=== PATIENT | male | born 1960 | race Caucasian/White ===

== ENCOUNTER 2016-06-19 12:16 | Day surgery (SDC) | payer OTHER ==
[~2016-06-19] VITALS: Ht 177.8 cm; Wt 99.5 kg
[2016-06-19] VITALS (9 sets, daily range): BP systolic 122–140; BP diastolic 66–86; PULSE 55–70; RESP 9–18; O2SAT 95–99
[~2016-06-19 12:16] MED LIST: CeFAZolin Inj 2 GM in IV Premix 1 EACH IV ONE; Dexamethasone 4 mg/mL Inj IVPUSH PRN; EPHEDrine Sulfate 50 mg/mL Inj IVPUSH PRN; HYDR-4003 PO; HYDROmorphone 1 mg/mL Inj IVPUSH PRN; Lactated Ringer's 1,000 ML IV SCH; Lactated Ringer's 500 ML IV PRN; MetoCLOpramide 5 mg/mL 2 mL Inj IVPUSH PRN; Ondansetron 2 mg/mL 2 mL Inj IVPUSH PRN; Phenylephrine 10,000 mCg/mL Inj IVPUSH PRN; fentaNYL-PF 50 mCg/mL 2 mL Inj IVPUSH PRN
[2016-06-19] MEDS: Lactated Ringer's 1,000 ML IV SCH ×2 (12:46→13:52)
[2016-06-19] MEDS ORDERED: IBUP200C PO (12:48)
[2016-06-19] MEDS ORDERED: NAPR220C11 PO (12:48)
[2016-06-19] MEDS ORDERED: CeFAZolin Inj 2 gm / 50mL D5W IV ONE (13:05)
[2016-06-19] MEDS ORDERED: HYDROcodone-APAP 5-325 mg Tablet PO PRN (13:10)
--- NOTE | 2016-06-19 13:21 | PCM.ORTHOP ---
Orthopedic Operative Report Date of Service: Jun 19, 2016 Pre Operative Diagnosis Right fourth finger bony mallet nonunion, left knee arthritis Post Operative Diagnosis Same Procedure Right fourth finger bony mallet distal phalanx open reduction internal fixation , left knee steroid injection under anesthesia Surgeon Surgeon: Oseas Perkins MD Assistants: None Indication for Procedure Right fourth finger bony mallet nonunion, left knee arthritis Findings Per dictation Details of Procedure A clear explanation was given to the patient regarding the condition present, and the available conservative and surgical options. It was emphasized that the risks and benefits of surgery include but are not limited to infection, wound healing problems, damage to adjacent structures such as nerves, blood vessels and tendons, detention disability and pain, arthritis, hypersensitivity, deep vein thrombosis, pulmonary embolism, broken hardware, failure of surgery, need for further procedures at time of surgery or later, cast related problems, loss of limb or life. The patient was given an explanation and the patient voiced understanding of what to expect after the procedure or surgery, the limitations in activities of daily living, the likely duration for post operative recovery and the instructions that are to be followed. At the end the patient was invited to seek clarification or ask further questions but there were none. The patient voiced understanding of the entire consultation. Description of Procedure: Patient taken to operating room and transferred to operating table in supine position. Time out was performed with both anesthesia and orthopaedics faculty present to confirm details of case to be performed. After time out performed, patient placed under general anesthesia and endotracheal tube secured into place. Once endotracheal tube secured, proximal arm tourniquet was placed over softroll and secured with tape. Patient position was again checked to ensure all bony prominences adequately padded. The right arm was prepped and draped in the usual sterile fashion to the level of the tourniquet. A left steroid injection was performed in the left knee under sterile preparation. With 2 mL of lidocaine, 2 mL of bupivacaine, and 1 mL of 4 mg of Kenalog. The right upper extremity was then exsanguinated with an esmark and the tourniquet was then inflated to 250 mmHG. Incision was made approximately 1 cm H shaped long over the distal interphalangeal joint. Care was taken to preserve the extensor mechanism. The capsule was incised and the bony mallet phalanx were exposed. Fibrous tissue was debrided with a curet and rongeur. The fracture had minimal callus formation with an oblique fracture line involving the joint. The proximal bony mallet fragment was reduced to the shaft using pointed reduction clamp. It appeared the fracture was amenable to lag screw fixation. A 1.0 mm drill bit was used to drill the near and far cortex perpendicular to the fracture. The near cortex was then overdrilled with a 1.3 mm drill bit. A 1.3 mm screw was then placed crossing the fracture site and obtaining purchase through the opposite cortex. A second screw was used to prevent rotation of the fragment. The distal phalanx moved as a unit following fixation with congregational of the cascade and no scissoring or rotational deformity. Fluoroscopy confirmed good alignment of the finger and proximal phalanx in AP, lateral, and oblique views. The wound was irrigated with normal saline with bacitracin. he skin was then closed with 4-0 Nylon. Xeroform, 4x4 gauze, and a well-padded ulnar gutter splint was applied. There were no complications. EBL was less than 5 cc. I was present for the entire procedure. The patient was then extubated and taken to PACU in stable condition. Grafts, Implants: Implants-See Implant Record Complications There were no periprocedural complications identified. Condition Stable Anesthetic Administered: GA Catheters: None Output, Estimated Blood Loss: 10 Blood Admin during surgery: No Surgical Cast or Splint: Short Arm Splint Surgical Specimen Removed: No Specimen sent to Pathology: No copies to: Oseas Perkins MD, Christopher L MD Jun 19, 2016 13:21
--- NOTE | 2016-06-19 13:21 | PCM.HPANE ---
Patient Data Surgeon Admitting Provider: Attending Provider:Oseas Perkins MD Primary Care Physician:Oracio Other Provider: Reason for Visit Right 4TH Digital Phalanx Fracture, Left Knee Pain Ht/WT & BMI Height (Feet): 5 Height (Inches): 10 Weight (Kilograms): 101.15 Body Mass Index 0.00 Allergies Coded Allergies: No Known Allergies (Unverified , 06/19/16) Past Anesthesia History Anesthesia History: Positive for:: Anesthesia Reactions (nausea/vomiting after prolonged anes ), Denies:: Abnormal Airway ("not as open as it should be"), Difficult Intubation, Fam Anesthesia Reaction Diabetes History Hx Diabetes?: No MRSA MRSA: No Medications Hypertension Medication: No Home Meds Incl Beta Jhony: No Reported Medications Naproxen Sodium (Aleve)220 Mg [id number] Mg PO 06/19/16 Ibuprofen 200 Mg [id number] Mg PO QID PRN For Pain Ref 0 06/19/16 Hydrocodone-Acetaminophen 5-325 mg 1 Each Tablet1 Tablet PO Q4H PRN For Pain Ref 0 06/17/16 History HEENT History: Positive for:: Hearing Problem (no hearing aides- mild loss) Denies:: Abnormal Airway ("not as open as it should be") Cataracts Difficult Intubation Dysphagia Glaucoma Sinus Problem TMJ Cardiovascular History: Denies:: AICD Abdominal Aortic Aneurism Atrial Fibrillation Cardiac Surgery Chest Pain Congestive Heart Failure Coronary Artery Disease Edema Heart Murmur Hypertension Irregular Heartbeat Pacemaker Peripheral Vascular Rheumatic Fever Hx of Respiratory Problem?: Yes Respiratory History: Positive for:: Pneumonia (hx of recently- jan 2016, ) Denies:: Asthma COPD Emphysema Oxygen Administration Tuberculosis Use of C-PAP Machine Use of Inhalers / NEBS Hx Neurologic Problems?: Yes Neurological History: Positive for:: Headaches (daily headaches since arrival in [place]) Denies:: Alzheimer's Disease CVA Dementia Dizziness Multiple Sclerosis Parkinson's Disease Seizures TIA Gastrointestinal History: Denies:: Cirrhosis Diverticulitis Gall Bladder Disease Gastroesphageal Reflux Gastrointestinal Bleeding Heartburn Hepatitis Hiatal Hernia Liver Disease Rectal Bleeding Hx of Problems?: No Genitourinary History: Denies:: Kidney Stones Urinary Tract Infection Male Hx: Denies:: Prostate Problems Skin History: Denies:: History Skin Disorders? Pressure Ulcers Hx Musculoskeletal Problems?: Yes Musculoskeletal History: Positive for:: Musculoskeletal Trauma (right hand fx , left knee O/A) Osteoarthritis (both knees) Denies:: Fibromyalgia Joint Replacement Hx of Psycho/Social Problems?: No Psycho Social History: Denies:: Anxiety Hx Depression (situational, not clinically dx- PTSD issues) Hx Surgeries?: Yes (multiple ortho, hernia) Hx Any Other Health Problems?: Yes Other History: Denies:: Cancer History Blood Transfusions: Positive for:: Accept Blood Products? Denies:: Blood Transfusions Hx Diabetes: No Hx Alcohol Use: NoHx Substance Use: NoHave You Smoked inLast 12 mo: No Stop/Bang Treated for Sleep Apnea?: No Do You Have a CPAP Machine?: No S-Snoring: Do You Snore Loudly: Yes T-Tired: feel tired, fatigued: Yes O-Obsered: Observed not breath: No P-Blood Pressure: treated: No B- Body Mass Index > 35 kg/m2: No A- Age over 50: Yes N- Neck Large Circumference: No G- Gender Male: Yes BHAVNA Total Score: 4 BHAVNA Risk Assessment: Low Risk, <3 Yes Risk Assessment Category Category 1A: Patient has history of documented sleep apnea, and HAS NOT received any narcotic, sedative or anesthesia administration during this stay. Category 1B: Patient has history of documented sleep apnea, and HAS received any narcotic , sedative or anesthesia administration during this stay Category 2: Patient has SUSPECTED Obstructive Sleep Apnea, and HAS received any narcotic , sedative or anesthesia administration during this stay. Category 3: Patient has SUSPECTED Obstructive Sleep Apnea and HAS NOT received narcotic, sedative or anesthesia administration during this stay. Category 4: Outpatient in Procedural Areas with known sleep apnea or who screen positive for High Risk via the STOP/BANG questionnaire. Exam Exam Vital Signs Vital Signs Date Time Temp Pulse Resp B/P Pulse Ox O2 Delivery O2 Flow Rate FiO2 06/19/16 12:53 36.8 63 18 140/86 97 Room Air Meds/Labs/Diagnostics Admission Meds Current Medications Lactated Ringer's (Lr) 1,000 ml @ 120 mls/hr [id number] IV Last administered on t 12:46; Start 06/19/16 at 05:00; Stop 06/19/16 at 13:19; Status DC Plan Impression Patient chart reviewed, patient interviewed and anesthestic plan with risks, benefits, and alternatives discussed, and informed consent obtained. NPO Status: [id number] David Rivero MD Jun 19, 2016 13:21
[2016-06-19] MEDS ORDERED: Triamcinolone Acet 40 mg/mL 1 mL Inj ARTICULAR ONE (14:05)
[2016-06-19] MEDS ORDERED: Bupivacaine 0.5% 50 mL Inj ARTICULAR ONE (14:05)
[2016-06-19] MEDS ORDERED: Lidocaine 1% 50 mL Inj ARTICULAR ONE (14:05)
[2016-06-19] MEDS ORDERED: Lidocaine 1% 50 mL Inj INFILTRATE ONE (14:15)
[2016-06-19] MEDS ORDERED: Bacitracin 50,000 unit Inj IRRIGATION ONE (14:38)
--- NOTE | 2016-06-19 17:37 | PCM.ANEP1 ---
Post Anesthesia Phase 1 PACU Phase 1 Assessment Date of Service: Jun 19, 2016 Vital Signs Vital Signs Date Time Temp Pulse Resp B/P Pulse Ox O2 Delivery O2 Flow Rate FiO2 06/19/16 16:20 61 16 122/68 97 Room Air 06/19/16 15:57 36.6 62 10 128/75 97 Room Air 06/19/16 15:51 60 9 126/83 97 Room Air 06/19/16 15:47 59 11 138/66 95 Room Air 06/19/16 15:39 61 11 133/77 95 Room Air 06/19/16 15:25 56 11 124/83 98 Simple Mask 10 06/19/16 15:20 55 11 134/81 98 Simple Mask 10 06/19/16 15:17 36.5 70 13 138/76 99 Simple Mask 10 06/19/16 12:53 36.8 63 18 140/86 97 Room Air Anesthetic Administered: David Campbell MD Jun 19, 2016 17:37
--- NOTE | 2016-06-19 17:37 | PCM.ANEP2 ---
Post Anesthesia Evaluation ASA/CMS Post Anesthesia VS in Patient's Normal Range?: Yes Resp Stable; Airway Patent?: Yes CV Function & Hydration Stable: Yes Mental Status Recovered?: Yes Pain control Satisfactory?: Yes N/V Control Satisfactory?: Yes David Rivero MD Jun 19, 2016 17:37
== END 2016-06-19 23:59 | disposition home or self-care (01) ==
LOC: SAS 12:16
PROVIDERS: ATTEND Orthopaedic Surgery
DX: S62.636K Displaced fracture of distal phalanx of right little finger, subsequent encounter for fracture with nonunion (principal); M17.12 Unilateral primary osteoarthritis, left knee
CPT/HCPCS: 20610; 26765; J0690; J3301; J7120